=== PATIENT | male | born 1960 | race Caucasian/White ===

== ENCOUNTER 2021-01-01 07:33 | Emergency (ER) | payer BC ==
[2021-01-01 07:38] VITALS: BP 153/94; PULSE 62; RESP 18; TEMP 98.1
[2021-01-01] MEDS ORDERED: CEPHALEXIN 500MG STARTER PACK 4 CAP BTL PO STA (07:54)
--- NOTE | 2021-01-01 08:00 | ED ---
General Adult HPI - General Chief complaint: Wound/Laceration Stated complaint: Finger lac Time Seen by Provider: 01/01/21 07:42 Source: patient, RN notes reviewed Mode of arrival: ambulatory Limitations: no limitations - History of Present Illness Initial comments: 60-year-old male presents to the emergency room for a chief laceration. Patient reports that he was cutting branches with oscar last night when he accidentally cut his finger. Patient reports that he put a Band-Aid on it and left it alone. However this morning showering any hit it with his foot and it started to bleed again. Patient states he put a Band-Aid on it and came to the emergency room. Patient's laceration was about 12 hours ago. Patient states it is a little bit swollen but nothing significant. Patient states since he has put the Band-Aid and the ointment on it he does not think he needs stitches. Tetanus up-to-date 5 years ago.Patient has no other complaints at this time including shortness of breath, chest pain, abdominal pain, nausea or vomiting, headache, or visual changes. - Related Data Previous Rx's Medication Instructions Recorded Amoxicillin/Potassium Clav 1 tab PO Q12HR #14 tab 01/19/16 [Augmentin 875-125 Tablet] Ibuprofen [Motrin] 600 mg PO Q6HR PRN #20 tab 16 Cephalexin [Keflex] 500 mg PO Q6HR 3 Days #12 cap 01/01/21 Allergies Allergy/AdvReac Type Severity Reaction Status Date / Time No Known Allergies Allergy Verified 01/01/21 07:38 Review of Systems ROS Statement: Those systems with pertinent positive or pertinent negative responses have been documented in the HPI. ROS Other: All systems not noted in ROS Statement are negative. Past Medical History Past Medical History: No Reported History History of Any Multi-Drug Resistant Organisms: None Reported Past Surgical History: No Surgical Hx Reported Past Psychological History: No Psychological Hx Reported Smoking Status: Never smoker Past Alcohol Use History: Occasional Past Drug Use History: None Reported General Exam Limitations: no limitations General appearance: alert Head exam: Present: atraumatic Eye exam: Present: normal appearance, PERRL, EOMI ENT exam: Present: normal exam, mucous membranes moist Neck exam: Present: normal inspection, full ROM. Absent: tenderness Respiratory exam: Present: normal lung sounds bilaterally. Absent: respiratory distress, wheezes Cardiovascular Exam: Present: regular rate, normal rhythm, normal heart sounds Extremities exam: Present: other (Small 1 cm laceration of the distal phalanx of the left third digit shaped like a "V". Wound margins are well approximated. No cellulitis or edema.) Course Vital Signs 01/01/21 01/01/21 07:34 08:58 Temperature 98.1 F 98.1 F Pulse Rate 62 62 Respiratory 18 18 Rate Blood Pressure 153/94 153/94 O2 Sat by Pulse 97 97 Oximetry Medical Decision Making - Medical Decision Making Tetanus up-to-date. X-ray was obtained, no fractures. Patient's wound margins are well approximated. this happened about 14 hours ago, sutures would increase risk of infection. Patient would benefit from light closure of the wound with Steri-Strips or Band-Aid. Patient preferred Band-Aid. He will continue to try antibiotic ointment. He will be given Keflex to prevent infection as this does involve the finger. He will return here for any worsening symptoms. Disposition Clinical Impression: Laceration Disposition: HOME SELF-CARE Condition: Good Instructions (If sedation given, give patient instructions): Laceration (ED) Additional Instructions: Take antibiotics as directed. Follow-up with your doctor in one to 2 days. Monitor for any signs of infection like spreading or streaking redness drainage, or fever and return if these occur. Prescriptions: Cephalexin [Keflex] 500 mg PO Q6HR 3 Days #12 cap Is patient prescribed a controlled substance at d/c from ED?: No Referrals: Hussain Bocanegra III, MD [Primary Care Provider] - 1-2 days Time of Disposition: 07:58
--- NOTE | 2021-01-01 09:05 | XR ---
EXAMINATION TYPE: XR finger LT DATE OF EXAM: 01/01/2021 Comparison: None TECHNIQUE: 3 views coned down left third finger Clinical History: 60-year-old male pain after 3rd digit, lac Findings: No retained radiopaque foreign body is seen. No acute fracture, subluxation, or dislocation. Impression: Images coned down to the left third finger. No retained radiopaque foreign body or acute osseous abno rmality seen.
== END 2021-01-01 08:58 | disposition home or self-care (01) ==
LOC: EC 07:33
DX: S61.213A Laceration without foreign body of left middle finger without damage to nail, initial encounter (principal); W26.8XXA Contact with other sharp object(s), not elsewhere classified, initial encounter
CPT/HCPCS: 99283

== ENCOUNTER → 2024-11-20 | Outpatient (CLI) | payer BC ==
--- NOTE | 2024-11-20 09:37 | US ---
EXAMINATION TYPE: US abdomen complete DATE OF EXAM: 11/20/2024 COMPARISON: NONE CLINICAL INDICATION: Male, 63 years old with history of R10.11 RIGHT UPPER QUADRANT PAIN; bloating x 6 months, better with antiacids. Hx daily alcohol use TECHNIQUE: Grayscale and color Doppler imaging of the abdomen was performed. FINDINGS: EXAM MEASUREMENTS: Liver Length: 13.7 cm Gallbladder Wall: 0.2 cm CBD: 0.2 cm, color Doppler imaging was utilized to isolate the common bile duct for measurement. Spleen: 8.7 cm Right Kidney: 12.0 x 4.7 x 5.1 cm Left Kidney: 11.6 x 5.0 x 5.2 cm CHEF UNDER NOTES: Pancreas: wnl Liver: wnl, no dilated ducts, masses or cysts. Gallbladder: wnl Evidence for sonographic Vasquez's sign: No CBD: wnl Spleen: wnl Right Kidney: wnl, No hydronephrosis, calculi or masses seen Left Kidney: wnl, No hydronephrosis, calculi or masses seen Upper IVC: wnl Abd Aorta: wnl The liver is homogenous. The intrahepatic portion of the IVC and proximal abdominal aorta are within normal limits. There is no evidence of cholelithiasis. Common bile duct is unremarkable. The visu alized portions of the pancreas are homogenous. The spleen is unremarkable. Kidneys are symmetric a nd free of hydronephrosis. No renal lesions are seen. IMPRESSION: No evidence for acute process. [facility], , 11/20/2024 9:35 AM
== END | disposition home or self-care (01) ==
LOC: RADUSWWP 08:24
PROVIDERS: ATTEND Family Medicine
DX: R10.11 Right upper quadrant pain (principal); F10.10 Alcohol abuse, uncomplicated
CPT/HCPCS: 76700

== ENCOUNTER → 2024-11-22 | Outpatient (CLI) | payer BC ==
--- NOTE | 2024-11-22 15:12 | NM ---
EXAMINATION TYPE: NM hepatobiliary w EF DATE OF EXAM: 11/22/2024 3:05 PM COMPARISON: Ultrasound most recent 11/20/2024. CLINICAL INDICATION:Male, 63 years old with history of R10.11 RUQ pain; TECHNIQUE: The patient was given 5.0 mCi of Technetium 99m-Mebrofenin as a radiotracer and multiple scintigraphic images were obtained of the abdomen. Gallbladder function was also assessed after the a dministration of ensure drink and additional scintigraphic images were obtained of the abdomen. A reg ion of interest was drawn over the gallbladder and a timing activity curve was generated. The gallbla dder ejection fraction was calculated. FINDINGS: Normal uptake of radiotracer was identified within the liver with excretion into the hepatic and comm on biliary ducts within 6 min. There was normal progressive washout of the liver over the course of t he study. Radiotracer uptake within the gallbladder at 22 minutes as well as small bowel activity was identified at 8 minutes. Maximum calculated gallbladder ejection fraction is: 45% at 30 minutes (Normal gallbladder ejection fraction is > 35%) IMPRESSION: 1. Normal hepatobiliary scan. 2. Low end of normal ejection fraction. [facility], , 11/22/2024 3:09 PM
== END | disposition home or self-care (01) ==
LOC: RADNMMAIN 12:50
PROVIDERS: ATTEND Family Medicine
DX: R10.11 Right upper quadrant pain (principal)
CPT/HCPCS: 78226; A9537